=== PATIENT | female | born 1995 | race Caucasian/White ===

== ENCOUNTER 2017-11-13 14:41 | Emergency (ER) | payer OTHER ==
[2017-11-13 15:07] VITALS: BMI 25.8
[2017-11-13 15:09] VITALS: TEMP 98.2
--- NOTE | 2017-11-13 16:32 | RAD ---
PROCEDURE: Left foot dated 11/13/2017 HISTORY: pain COMPARISON: None. FINDINGS: BONES: No evidence of acute displaced fracture nor dislocation. The osseous structures intact. There are no cortical destructive changes seen. JOINTS: Joint spaces preserved. SOFT TISSUES: Soft tissues appear grossly unremarkable. OTHER FINDINGS: No radiopaque foreign bodies IMPRESSION: Normal no evidence of acute displaced fracture nor dislocation.
--- NOTE | 2017-11-13 16:44 | C.PDOC ---
History Of Present Illness 21 y/o female presents to the ED for evaluation of left foot pain which began 3 days ago. Patient states she was doing some exercises one day before the onset of her symptoms, and suspects she may have done them incorrectly and hurt her foot. She states her pain is worse with walking. Otherwise, she denies direct trauma/injuries to the site and changes in sensation. Time Seen by Provider: 11/13/17 15:27 Chief Complaint (Nursing): Lower Extremity Problem/Injury History Per: Patient History/Exam Limitations: no limitations Onset/Duration Of Symptoms: Days (3) Current Symptoms Are (Timing): Still Present Additional History Per: Patient Past Medical History Reviewed: Historical Data, Nursing Documentation, Vital Signs Vital Signs: Last Vital Signs Temp 98.2 F 11/13/17 15:07 Pulse 76 11/13/17 16:50 Resp 16 11/13/17 16:50 BP 111/68 11/13/17 16:50 Pulse Ox 100 11/13/17 16:58 - Medical History PMH: No Chronic Diseases Surgical History: No Surg Hx Family History: States: Unknown Family Hx - Social History Hx Alcohol Use: No Hx Substance Use: No - Immunization History Hx Tetanus Toxoid Vaccination: No Hx Influenza Vaccination: No Hx Pneumococcal Vaccination: No Review Of Systems Musculoskeletal: Positive for: Foot Pain (left ) Neurological: Negative for: Weakness, Numbness Physical Exam - Physical Exam Appears: Non-toxic, No Acute Distress Skin: Normal Color, Warm, Dry Head: Atraumatic, Normacephalic Eye(s): bilateral: Normal Inspection, EOMI Nose: Normal Oral Mucosa: Moist Chest: Symmetrical Respiratory: No Accessory Muscle Use Extremity: Normal ROM, Tenderness (to lateral aspect of left foot ), Capillary Refill (less than 2 seconds ), No Swelling Extremity: Bilateral: Normal Color And Temperature Pulses: Left Dorsalis Pedis: Normal, Right Dorsalis Pedis: Normal Neurological/Psych: Oriented x3, Normal Speech, Normal Cognition, Normal Motor, Normal Sensation ED Course And Treatment O2 Sat by Pulse Oximetry: 100 (on RA) Pulse Ox Interpretation: Normal - Other Rad left foot XR X-Ray: Interpreted by Me, Viewed By Me, Read By Radiologist Interpretation: PROCEDURE: Left foot dated 11/13/2017. HISTORY: pain. COMPARISON: None. FINDINGS: BONES: No evidence of acute displaced fracture nor dislocation. The osseous structures intact. There are no cortical destructive changes seen. JOINTS: Joint spaces preserved. SOFT TISSUES: Soft tissues appear grossly unremarkable. OTHER FINDINGS: No radiopaque foreign bodies. IMPRESSION: Normal no evidence of acute displaced fracture nor dislocation. Progress Note: left foot XR ordered. Results show no evidence of fracture or dislocation. JOSE bandage applied by human relations professor. Instructed RICE and follow up with PMD i n1-2 days/ Disposition - Disposition Referrals: Octaviano Soto MD [Staff Provider] - Disposition: HOME/ ROUTINE Disposition Time: 16:43 Condition: STABLE Additional Instructions: Rest, ice and elevate the area. Follow up with your primary medical doctor or clinic in 2-5 days for further evaluation. Return to the emergency department at any time if symptoms persist or worsen. Instructions: Foot Sprain (ED) Forms: [facility] (Bulgarian), Work Excuse - Clinical Impression Clinical Impression: Foot sprain - PA / [employer] / Resident Statement MD/DO has reviewed & agrees with the documentation as recorded. - Scribe Statement The provider has reviewed the documentation as recorded by the Scribe (Gloria Herron) All medical record entries made by the Scribe were at my direction and personally dictated by me. I have reviewed the chart and agree that the record accurately reflects my personal performance of the history, physical exam, medical decision making, and the department course for this patient. I have also personally directed, reviewed, and agree with the discharge instructions and disposition.
[2017-11-13 16:51] VITALS: BP 111/68; PULSE 76; RESP 16
[2017-11-13 16:54] VITALS: O2SAT 100
== END 2017-11-13 16:50 | disposition home or self-care (01) ==
LOC: C.ER 14:41
DX: S93.602A Unspecified sprain of left foot, initial encounter (principal); X58.XXXA Exposure to other specified factors, initial encounter